=== PATIENT | male | born 1975 | race Caucasian/White ===

== ENCOUNTER 2018-04-25 19:05 | Emergency (ER) | payer OTHER ==
[~2018-04-25] VITALS: Ht 195.6 cm; Wt 117.9 kg
[2018-04-25] MEDS ORDERED: TOPROL XL25 MG PO (19:16)
[2018-04-25] MEDS ORDERED: LIPITOR 20 MG T20 M1 PO (19:17)
[2018-04-25] MEDS ORDERED: FENOFIBRATE160 MG PO (19:17)
[2018-04-25] MEDS ORDERED: ZETIA10 MG PO (19:17)
[2018-04-25] MEDS ORDERED: MICARDIS 20MG T20 M1 PO (19:18)
[2018-04-25] MEDS ORDERED: ASPIR 8181 M1 PO (19:18)
[2018-04-25 19:49] LABS: HEMATOCRIT 45.8 % (42.0-52.0); HEMOGLOBIN 15.5 gm/dL (14.0-18.0); MCH 28.5 pg (26.0-34.0); MCHC 33.9 g/dL (28.0-37.0); MPV 8.3 fl. (7.2-11.1); NUCLEATED RBCS 0 /100WBC; PLATELET COUNT* 209 thou/uL (150-400); RBC 5.45 mil/uL (4.50-6.00); WBC 12.6 thou/uL (4.0-11.0)
[2018-04-25 19:54] LABS: ANION GAP 6 mmol/L (7-16); BUN 14 mg/dL (7-18); CHLORIDE 102 mmol/L (98-107); CO2 29 mmol/L (21-32); CREATININE 0.9 mg/dL (0.6-1.3); GLUCOSE 120 mg/dL (70-99); POTASSIUM 3.9 mmol/L (3.5-5.1); SODIUM 137 mmol/L (136-145)
[2018-04-25 20:01] LABS: ALBUMIN 3.6 g/dL (3.4-5.0); ALKALINE PHOSPHATASE 74 U/L (46-116); SGOT 16 U/L (15-37); SGPT 48 U/L (30-65); TOTAL BILIRUBIN 0.5 mg/dL (<0.1-1.0); TOTAL PROTEIN 7.4 g/dL (6.4-8.2); TROPONIN-I LEVEL <0.06 ng/mL (<0.06)
[2018-04-25] MEDS ORDERED: PROAIR HFA8.5 GM INH (20:16)
[2018-04-25] MEDS ORDERED: NAPROSYN500 MG PO (20:16)
[2018-04-25] MEDS ORDERED: PEPCID20 MG PO (20:16)
[2018-04-25 20:22] LABS: ABSOLUTE LYMPHOCYTES 0.6 thou/uL (0.8-5.3); ABSOLUTE MONOCYTES 1.4 thou/uL (0.0-1.2); ABSOLUTE NEUTROPHILS 10.6 thou/uL (1.6-8.1)
[2018-04-25 20:26] LABS: PLATELET ESTIMATE ADEQUATE
[2018-04-25 20:34] VITALS: BP 147/92
--- NOTE | 2018-04-27 18:38 | EKG ---
[place] [address] ELECTROCARDIOGRAM REPORT Name: JOHNIE BLAS Room: [facility]#: [id number] Admission: 04/25/18 Attend Phys: Discharge: 04/25/18 Date of : 71 Report #: [id number] THIS REPORT FOR: //name// [facility] ED Test Date: 2018-04-25 Test Time: 19:27:36 Pat Name: JOHNIE BLAS Department: Room: Gender: M Digital Solution Architect: DILLON : 1975 Requested By: Kristin Arellano Order Number: [id number] MD: Roberto Swartz Measurements Intervals [place]ney Rate: 99 P: 7 NC: 208 QRS: -8 QRSD: 91 T: 86 QT: 329 QTc: 423 Interpretive Statements Sinus rhythm Prolonged NC interval Left ventricular hypertrophy No previous ECG available for comparison Electronically Signed On 04-27-2018 18:38:08 CDT by Roberto Swartz [email or web address] <ELECTRONICALLY SIGNED> By: Roberto Swartz MD, [facility] 04/27/18 1838 26 26 Roberto Swartz MD, FACC /EPI
== END 2018-04-25 20:36 | disposition home or self-care (01) ==
LOC: M.ERS 19:05
PROVIDERS: Physician Assistant
DX: R07.89 Other chest pain (principal); I25.10 Atherosclerotic heart disease of native coronary artery without angina pectoris; I10 Essential (primary) hypertension; E78.00 Pure hypercholesterolemia, unspecified